=== PATIENT | female | born 1970 | race Caucasian/White ===

== ENCOUNTER 2016-09-16 12:44 | Inpatient (IN) | payer OTHER ==
[~2016-09-16] VITALS: Ht 154.9 cm; Wt 65.8 kg
[2016-09-16 13:14] VITALS: BP 146/95
[2016-09-16 14:04] LABS: BILIRUBIN,URINE NEGATIVE (NEGATIVE); BLOOD, URINE 2+ (NEGATIVE); COLOR,URINE YELLOW (YELLOW); LEUKOCYTE ESTERASE ,URINE NEGATIVE (NEGATIVE); NITRITE, URINE NEGATIVE (NEGATIVE); PROTEIN,URINE NEGATIVE (NEGATIVE); UGLUCOSE NEGATIVE (NEGATIVE); UROBILINOGEN,URINE 0.2 EU/dL (0.2 - 1)
[2016-09-16 14:08] LABS: HEMATOCRIT 38.3 % (36-48); HEMOGLOBIN 13.1 g/dL (12.0-16.0); MEAN CORPUSCULAR HEMOGLOBIN 30 pg (27-31); MEAN CORPUSCULAR HGB CONC 34 g/dL (33-37); MEAN CORPUSCULAR VOLUME 87 fL (80-94); PLATELET COUNT (AUTO) 367 K/uL (140-450); RED CELL DISTRIBUTION WIDTH 12.7 % (11.6-13.7); WHITE BLOOD COUNT (AUTO) 24.3 K/uL (4.8-10.8)
[2016-09-16 14:10] LABS: APPEARANCE,URINE CLOUDY (CLEAR); RBC,URINE 20-40 /HPF (0-5)
[2016-09-16 14:12] LABS: BACTERIA,URINE 1+ /HPF (None Seen); MUCUS,URINE 3+ /LPF (None Seen); SQUAMOUS EPITHELIAL CELL,UR 20-40 /LPF (0-3 (FEW)); WBC,URINE 0-3 /HPF (0-5)
[2016-09-16 14:14] LABS: ANION GAP 14.1 (8-16); CARBON DIOXIDE 24.8 mmol/L (21-32); CREATININE 0.7 mg/dL (0.6-1.3); POTASSIUM 3.9 mmol/L (3.5-5.1)
[2016-09-16 14:19] LABS: ALBUMIN 3.5 g/dL (3.4-5.0); TOTAL BILIRUBIN 0.5 mg/dL (0.0-1.0); TOTAL PROTEIN, SERUM 7.8 g/dL (6.4-8.2)
[2016-09-16 14:36] LABS: BAND % (MANUAL) 11 % (0-8); LYMPHOCYTES % (MANUAL) 5 % (20-46); MONOCYTES % (MANUAL) 3 % (5-12); NEUTROPHILS % (MANUAL) 81 (43-65); PLATELET ESTIMATE ADEQUATE
--- NOTE | 2016-09-16 18:39 | NUR ---
Pt taken to bed 8.
--- NOTE | 2016-09-16 18:48 | NUR ---
45/F presents to ED for evaluation of right sided abdominal pain radiating to right flank area for the past 2 weeks. Patient states she was sent home from work today. Pt states she has had a fever on and off. Afebrile at this time. Pt states the pain started suddenly and was intermittent and has been constant this last week. Patient describes pain as sharp, radiating to right flank, 9/10. Patient denies N/V/D at this time. Denies any painful urination or dysuria. Pt states she has hx of UTI's with no symptoms. Patient is AOX4, ambulatory with steady gait. Skin warm and dry. VSS.
--- NOTE | 2016-09-16 19:11 | NUR ---
Pt report given to Adolfo HERNANDEZ. Transfer of care at this time.
--- NOTE | 2016-09-16 19:18 | NUR ---
Dr. Ley evaluating patient at bedside.
[2016-09-16] MEDS ORDERED: KETOROLAC 30 MG/ML VIAL IVP ONE (19:25)
[2016-09-16] MEDS ORDERED: LEVOFLOXACIN 500 MG/D5W PREMIX 100 ML IV ONE (19:25)
[2016-09-16] MEDS ORDERED: NACL 0.9% 2,000 ML IV ONE (19:25)
[2016-09-16 19:59] LABS: LACTIC ACID 0.7 mmol/L (0.4-2.0)
[2016-09-16] MEDS ORDERED: HYDROmorphone 1 MG/ML AMP IVP ONE (20:55)
[2016-09-16] MEDS ORDERED: NACL 0.9% 1,000 ML IV ONE (20:55)
[2016-09-16] MEDS ORDERED: ONDANSETRON 4 MG/2 ML VIAL IVP ONE (21:40)
--- NOTE | 2016-09-16 22:28 | NUR ---
PT STATES SHE JUST HAD A VOMIT EPISODE IN THE BATHROOM, ER MD DR BRANDT AWARE
--- NOTE | 2016-09-17 00:01 | NUR ---
Pt report given to MARGARET HERNANDEZ. Transfer of care at this time. Patient will be admitted to care of DR LOOMIS. Admited to TELE 120A. Will go to room 120A. Belongings list completed. Report to MARGARET HERNANDEZ.
--- NOTE | 2016-09-17 00:01 | NUR ---
PT DENIES TAKING ANY MEDICATION AT HOME
--- NOTE | 2016-09-17 00:02 | NUR ---
RECEIVED PT REPORT FROM LINDA IN ER. INFORMED PT HAS NO MEDICATION RECONCILIATION AND NO CODE STATUS.
--- NOTE | 2016-09-17 00:15 | NUR ---
PT ARRIVED ON UNIT IN STABLE CONDITION. NO SOB, NO SIGNS OF DISTRESS. VS STABLE ON ROOM AIR. PT IS AOX4, AMBULATORY. SKIN IS INTACT. IV TO RT AC 20G PATENT ASYMPTOMATIC, INTACT, SALINE LOCKED. PT DENIES PAIN AT THIS TIME BUT C/O NAUSEA. PT STATED THAT HER LAST PAIN MEDICATION MADE HER NAUSEOUS AND THAT ZOFRAN DID NOT HELP. ORIENTED PT TO ROOM AND UNIT. PLAN OF CARE DISCUSSED WITH PT. SAFETY MEASURES IN PLACE. CALL LIGHT WITHIN REACH. WILL CONTINUE TO MONITOR.
[2016-09-17 00:30] VITALS: BP 154/86
[2016-09-17] MEDS ORDERED: NACL 0.9% 2,000 ML IV SCH (00:45)
[2016-09-17] MEDS ORDERED: ONDANSETRON 4 MG/2 ML VIAL IVP PRN (00:45)
[2016-09-17] MEDS ORDERED: cefTRIAXone 1,000 MG VIAL ONE (01:29)
--- NOTE | 2016-09-17 02:30 | NUR ---
2ND LITER OF BOLUS ALMOST FINISHED, PT TOLERATING WELL. NO SOB, NO SIGNS OF DISTRESS. IV SITE ASYMPTOMATIC, INTACT, PATENT, IVF RUNNING. PT DENIES PAIN AT THIS TIME. PLAN OF CARE DISCUSSED WITH PT. SAFETY MEASURES IN PLACE. CALL LIGHT WITHIN REACH. WILL CONTINUE TO MONITOR.
[2016-09-17] MEDS: NACL 0.9% 1,000 ML IV SCH ×3 (02:55→21:52)
--- NOTE | 2016-09-17 04:28 | NUR ---
PT ASLEEP IN BED. NO SOB, NO SIGNS OF DISTRESS. IV SITE ASYMPTOMATIC, INTACT, PATENT, IVF RUNNING. SAFETY MEASURES IN PLACE. CALL LIGHT WITHIN REACH. WILL CONTINUE TO MONITOR.
[2016-09-17] MEDS: ACETAMINOPHEN 325 MG TAB PO PRN (06:23)
--- NOTE | 2016-09-17 07:25 | NUR ---
ENDORSED PT IN STABLE CONDITION TO DAVID MAGANA. ALL NEEDS HAVE BEEN MET AT THIS TIME.
[2016-09-17 07:26] LABS: HEMATOCRIT 36.6 % (36-48); HEMOGLOBIN 12.3 g/dL (12.0-16.0); MEAN CORPUSCULAR HEMOGLOBIN 29 pg (27-31); MEAN CORPUSCULAR HGB CONC 34 g/dL (33-37); MEAN CORPUSCULAR VOLUME 87 fL (80-94); PLATELET COUNT (AUTO) 353 K/uL (140-450); RED BLOOD CELL COUNT(AUTO) 4.18 MIL/uL (4.20-5.40); RED CELL DISTRIBUTION WIDTH 12.4 % (11.6-13.7)
--- NOTE | 2016-09-17 07:26 | NUR ---
RECEIVED SBAR REPORT FROM DAVID NUNEZ AT PT BEDSIDE. PT RESTING IN BED. DENIES DISCOMFORT AT THIS TIME. NO S/S OF RESPIRATORY DISTRESS. IV SITE PATENT AND INTACT. CALL LIGHT WITHIN REACH.
[2016-09-17 08:00] VITALS: BP 140/75
[2016-09-17 08:00] LABS: BAND % (MANUAL) 6 % (0-8); LYMPHOCYTES % (MANUAL) 11 % (20-46); MONOCYTES % (MANUAL) 4 % (5-12); NEUTROPHILS % (MANUAL) 79 (43-65)
--- NOTE | 2016-09-17 08:13 | NUR ---
PATIENT HAS BEEN SCREENED AND CATEGORIZED MODERATE NUTRITION RISK. PATIENT WILL BE SEEN WITHIN 3-5 DAYS OF ADMISSION. 09/19/16-09/21/[address]
[2016-09-17 08:14] LABS: ANION GAP 11.5 (8-16); CALCIUM 6.9 mg/dL (8.5-10.1); CARBON DIOXIDE 26.1 mmol/L (21-32); CREATININE 0.6 mg/dL (0.6-1.3); POTASSIUM 3.6 mmol/L (3.5-5.1)
[2016-09-17 08:21] LABS: MAGNESIUM 1.6 mg/dL (1.8-2.4); PHOSPHORUS 3.1 mg/dL (2.5-4.9)
[2016-09-17] MEDS ORDERED: DOCUSATE SODIUM 100 MG GELCAP PO SCH (09:00)
--- NOTE | 2016-09-17 09:34 | NUR ---
CM NOTE INITIAL REVIEW SENT TO [facility] FAX# [phone] PH# [phone] ATTN: URI CASTANEDA EXT [phone]
[2016-09-17 10:57] LABS: INR 1.1 (0.8-1.2); PROTHROMBIN TIME 10.5 secs (10.8-13.4)
[2016-09-17 10:58] LABS: LACTIC ACID 0.6 mmol/L (0.4-2.0)
[2016-09-17 10:59] LABS: CHOL/HDL RATIO 3.2 (1-4.5); CHOLESTEROL 146 mg/dL (<200); HDL CHOLESTEROL 46 mg/dL (40-60); LDL (CALC) 91 mg/dL (60-100); TRIGLYCERIDES 48 mg/dL (30-150)
[2016-09-17 11:00] LABS: AMYLASE 97 U/L (25-115)
[2016-09-17 11:04] LABS: FREE T4 (FREE THYROXINE) 1.18 ng/dL (0.76-1.46); LIPASE 377 U/L (73-393); THYROID STIMULATING HORMONE 0.55 uIU/mL (0.34-3.76)
[2016-09-17 11:07] LABS: MAGNESIUM 1.7 mg/dL (1.8-2.4)
[2016-09-17 11:18] LABS: AMPHETAMINE, URINE NEGATIVE ng/ml (NEG <=1000); BARBITURATE, URINE NEGATIVE ng/ml (NEG <=200); BENZODIAZEPINE, URINE NEGATIVE ng/mL (NEG <=200); CANNABINOID, URINE NEGATIVE ng/mL (NEG <=50); COCAINE, URINE NEGATIVE ng/mL (NEG <=300); OPIATE, URINE NEGATIVE ng/mL (NEG <=2000); PHENCYCLIDINE SCREEN,URINE NEGATIVE ng/mL (NEG <=25)
[2016-09-17 11:27] LABS: ALCOHOL, BLOOD < 3 mg/dL (<3)
--- NOTE | 2016-09-17 11:47 | NUR ---
PATIENT AMBULATING AROUND NURSING UNIT. NO S/S OF ACUTE DISTRESS.
[2016-09-17] MEDS ORDERED: MAG SULF 2000 MG/WATER PREMIX 50 ML IV SCH (13:00)
[2016-09-17 16:00] VITALS: BP 126/65
--- NOTE | 2016-09-17 16:11 | NUR ---
PT RESTING IN BED. DENIES DISCOMFORT. NO S/S OF ACUTE DISTRESS.
--- NOTE | 2016-09-17 17:12 | NUR ---
PATIENT REFUSED FLU VACCINE. EDUCATION GIVEN AND VERBALIZED UNDERSTANDING.
--- NOTE | 2016-09-17 19:25 | NUR ---
REPORT GIVEN TO GÓMEZ AT PT BEDSIDE. NO S/S OF ACUTE DISTRESS.
--- NOTE | 2016-09-17 19:26 | NUR ---
RECD. RESTING IN BED, AWAKE, A/OX4. RESPIRATION EVEN AND UNLABORED. IV OF NS AT 80ML/HR INFUSING, RIGHT AC G20. AMBULATORY TO BR. PLAN OF CARE FOR THE SHIFT DISCUSSED, VERBALIZED UNDERSTANDING. ENCOURAGED TO INCREASED WATER INTAKE. CRANBERRY JUICES GIVEN. DENIES PAIN 0/10.
--- NOTE | 2016-09-17 20:00 | NUR ---
Patient's Plan of Care was discussed and reviewed with KYRA: GÓMEZ.
[2016-09-17] MEDS: CALCIUM CARB/VIT-D 500 MG/200 IU 1 TAB PO SCH (21:07)
[2016-09-17] MEDS: HYDROcodone/APAP 5/325 MG 1 TAB TAB PO PRN (21:08)
[2016-09-17] MEDS: DOCUSATE SODIUM 100 MG GELCAP PO SCH (21:08)
[2016-09-17] MEDS ORDERED: ZOLPIDEM 5 MG TAB PO PRN (21:50)
--- NOTE | 2016-09-17 22:00 | NUR ---
AMBULATED TO TO VOID, BACK TO BED AFTER VOIDING. GAIT STEADY.
[2016-09-18] VITALS: BP 108/58
--- NOTE | 2016-09-18 | NUR ---
SLEEPING COMFORTABLY IN BED.
[2016-09-18] MEDS: NACL 0.9% 1,000 ML IV SCH ×3 (01:44→23:48)
--- NOTE | 2016-09-18 04:00 | NUR ---
AWAKE IN BED, STATED HER SLEEP IS ON AND OFF. ENCOURAGED TO GO BACK TO SLEEP.
[2016-09-18 06:41] LABS: BASOPHILS # (AUTO) 0.1 K/uL (0.00-0.22); BASOPHILS % (AUTO) 1.3 % (0.0-2.0); EOSINOPHILS # (AUTO) 0.2 K/uL (0-0.4); EOSINOPHILS % (AUTO) 1.6 % (0.0-4.0); HEMATOCRIT 35.6 % (36-48); HEMOGLOBIN 11.9 g/dL (12.0-16.0); LYMPHOCYTES # (AUTO) 3.6 K/uL (2.5-16.5); LYMPHOCYTES % (AUTO) 35.6 % (20.5-51.1); MEAN CORPUSCULAR HEMOGLOBIN 29 pg (27-31); MEAN CORPUSCULAR HGB CONC 33 g/dL (33-37); MEAN CORPUSCULAR VOLUME 88 fL (80-94); MONOCYTES # (AUTO) 0.7 K/uL (0.8-1.0); MONOCYTES % (AUTO) 6.6 % (1.7-9.3); NEUTROPHILS # (AUTO) 5.6 K/uL (1.8-7.7); NEUTROPHILS % (AUTO) 54.9 % (42.2-75.2); PLATELET COUNT (AUTO) 349 K/uL (140-450); RED BLOOD CELL COUNT(AUTO) 4.05 MIL/uL (4.20-5.40); RED CELL DISTRIBUTION WIDTH 12.4 % (11.6-13.7); WHITE BLOOD COUNT (AUTO) 10.2 K/uL (4.8-10.8)
[2016-09-18 06:45] LABS: ANION GAP 10.6 (8-16); CALCIUM 7.7 mg/dL (8.5-10.1); CARBON DIOXIDE 26.3 mmol/L (21-32); CREATININE 0.6 mg/dL (0.6-1.3); POTASSIUM 3.9 mmol/L (3.5-5.1)
[2016-09-18 06:53] LABS: MAGNESIUM 1.9 mg/dL (1.8-2.4); PHOSPHORUS 3.4 mg/dL (2.5-4.9)
--- NOTE | 2016-09-18 07:15 | NUR ---
CONDITION REMAIN STABLE. ENDORSED TO DAVID HERNANDEZ FOR CONTINUITY OF CARE.
--- NOTE | 2016-09-18 07:16 | NUR ---
RECEIVED PT ASLEEP BUT EASILY AROUSABLE. AAOX4, WITH IV ACCESS AT RIGHT AC 20G INFUSING FLUIDS WELL. NO S/S OF RESPIRATORY DISTRESS OR DISCOMFORT. DISCUSSED PLAN OF CARE, PT VERBALIZED UNDERSTANDING. CALL LIGHT WITHIN REACH, WILL CONTINUE TO MONITOR.
[2016-09-18 08:00] VITALS: BP 129/87
[2016-09-18 08:22] LABS: T3 UPTAKE 28 % (24-39)
--- NOTE | 2016-09-18 08:25 | NUR ---
CM NOTE CONCURRENT REVIEW SENT TO [facility] FAX# [phone] PH# [phone] URI CASTAN[facility] EXT [phone]
[2016-09-18] MEDS: CALCIUM CARB/VIT-D 500 MG/200 IU 1 TAB PO SCH ×2 (09:15→21:21)
[2016-09-18] MEDS: MULTIVITAMIN/MINERALS 1 TAB PO SCH (09:15)
[2016-09-18] MEDS: DOCUSATE SODIUM 100 MG GELCAP PO SCH ×2 (09:15→21:21)
--- NOTE | 2016-09-18 09:15 | NUR ---
DUE MEDS GIVEN, PT TOLERATED WELL. CALL LIGHT WITHIN REACH, WILL CONTINUE TO MONITOR.
--- NOTE | 2016-09-18 09:30 | NUR ---
PT TRANSFERRED TO BED 111B
--- NOTE | 2016-09-18 11:06 | NUR ---
PT AWAKE WATCHING TV. CALL LIGHT WITHIN REACH, WILL CONTINUE TO MONITOR.
--- NOTE | 2016-09-18 13:19 | NUR ---
PT AWAKE TALKING TO RELATIVE AT BEDSIDE. ALL NEEDS MET AT THIS TIME. CALL LIGHT WITHIN REACH, WILL CONTINUE TO MONITOR.
--- NOTE | 2016-09-18 15:13 | NUR ---
FREQUENT VISUAL CHECKS, PT HAS NO COMPLAINTS AT THIS TIME. ALL NEEDS MET. CALL LIGHT WITHIN REACH, WILL CONTINUE TO MONITOR.
[2016-09-18 16:00] VITALS: BP 127/80
--- NOTE | 2016-09-18 17:45 | NUR ---
PT AWAKE SITTING ON BED WATCHING TV. DINNER SERVED, PT HAS GOOD APPETITE. ALL NEEDS MET, WILL CONTINUE TO MONITOR.
[2016-09-18] MEDS: ACETAMINOPHEN 325 MG TAB PO PRN (19:24)
--- NOTE | 2016-09-18 19:37 | NUR ---
ENDORSED PT TO KYRA MAGAÑA IN STABLE CONDITION FOR CONTINUITY OF CARE
--- NOTE | 2016-09-18 19:38 | NUR ---
RECD. RESTING IN BED, AWAKE, A/OX4. RESPIRATION EVEN AND UNLABORED. IV OF NS AT 90 ML/HR INFUSING, RIGHT AC G20. STATED STILL WITH ON AND OFF LOW BACK PAIN. ENCOURAGED TO CONTINUE DRINKING MORE WATER AND CRANBERRY JUICES. PLAN OF CARE FOR THE SHIFT DISCUSSED. VERBALIZED UNDERSTANDING. DENIES PAIN AT THIS TIME . FAMILY AT THE BEDSIDE. Addendum: 09/18/16 at 2207 by Toyin Cavazos LVN CORRECTION : IV OF NS AT 80 ML/HR INFUSING.
--- NOTE | 2016-09-18 21:00 | NUR ---
Patient's Plan of Care was discussed and reviewed with DOWEL MACHINE OPERATOR: GÓMEZ TOLEDO
--- NOTE | 2016-09-18 21:21 | NUR ---
UNABLE TO SLEEP, MEDICATED WITH AMBIEN 5 MG. PO.
--- NOTE | 2016-09-18 22:20 | NUR ---
STILL AWAKE, WATCHING TV.
[2016-09-18] MEDS: HYDROcodone/APAP 5/325 MG 1 TAB TAB PO PRN (23:44)
[2016-09-19] VITALS: BP 146/71
--- NOTE | 2016-09-19 01:30 | NUR ---
SLEEPING COMFORTABLY IN BED.
[2016-09-19] MEDS: NACL 0.9% 1,000 ML IV SCH (02:44)
[2016-09-19 06:39] LABS: BASOPHILS # (AUTO) 0.2 K/uL (0.00-0.22); BASOPHILS % (AUTO) 2.2 % (0.0-2.0); EOSINOPHILS # (AUTO) 0.2 K/uL (0-0.4); HEMATOCRIT 37.9 % (36-48); HEMOGLOBIN 12.8 g/dL (12.0-16.0); LYMPHOCYTES # (AUTO) 3.8 K/uL (2.5-16.5); LYMPHOCYTES % (AUTO) 38.3 % (20.5-51.1); MEAN CORPUSCULAR HEMOGLOBIN 30 pg (27-31); MEAN CORPUSCULAR HGB CONC 34 g/dL (33-37); MEAN CORPUSCULAR VOLUME 88 fL (80-94); MONOCYTES # (AUTO) 0.7 K/uL (0.8-1.0); MONOCYTES % (AUTO) 7.2 % (1.7-9.3); NEUTROPHILS # (AUTO) 4.9 K/uL (1.8-7.7); NEUTROPHILS % (AUTO) 50.3 % (42.2-75.2); PLATELET COUNT (AUTO) 398 K/uL (140-450); RED BLOOD CELL COUNT(AUTO) 4.29 MIL/uL (4.20-5.40); RED CELL DISTRIBUTION WIDTH 12.2 % (11.6-13.7); WHITE BLOOD COUNT (AUTO) 9.8 K/uL (4.8-10.8)
[2016-09-19 06:57] LABS: CALCIUM 8.3 mg/dL (8.5-10.1); CARBON DIOXIDE 29.8 mmol/L (21-32); CREATININE 0.7 mg/dL (0.6-1.3); POTASSIUM 3.8 mmol/L (3.5-5.1)
[2016-09-19 07:03] LABS: MAGNESIUM 1.7 mg/dL (1.8-2.4)
--- NOTE | 2016-09-19 07:25 | NUR ---
CONDITION REMAIN STABLE. ENDORSED TO DAVID ARANA FOR CONTINUITY OF CARE.
--- NOTE | 2016-09-19 07:27 | NUR ---
RECEIVED REPORT FROM NIGHT PER DIEM PHYSICAL THERAPIST ASSISTANT. PT SLEEPING IN BED. AAOX4. NO S/S OF ACUTE DISTRESS. PT DENIES PAIN. IV SITE PATENT AND INTACT. CALL LIGHT WITHIN REACH. SAFETY MEASURES ENSURED. WILL CONTINUE TO MONITOR.
[2016-09-19 08:00] VITALS: BP 140/90
[2016-09-19] MEDS ORDERED: LEVO750T2 PO (08:22)
[2016-09-19] MEDS ORDERED: ACET-2863 PO (08:24)
[2016-09-19] MEDS ORDERED: DOCU-67 PO (08:24)
[2016-09-19] MEDS ORDERED: MAGNESIUM OXIDE 400 MG TAB PO SCH (09:00)
[2016-09-19] MEDS: MULTIVITAMIN/MINERALS 1 TAB PO SCH (09:17)
[2016-09-19] MEDS: CALCIUM CARB/VIT-D 500 MG/200 IU 1 TAB PO SCH (09:17)
[2016-09-19] MEDS: DOCUSATE SODIUM 100 MG GELCAP PO SCH (09:17)
--- NOTE | 2016-09-19 09:36 | NUR ---
CM NOTE CONCURRENT REVIEW SENT TO [facility] FAX# [phone] PH# [phone] URI CASTANEDA EXT [phone]
--- NOTE | 2016-09-19 09:45 | NUR ---
PT TOLERATED AM MEDS WELL. NO S/S OF ACUTE DISTRESS. PT DENIES PAIN. CALL LIGHT WITHIN REACH. SAFETY MEASURES ENSURED. WILL CONTINUE TO MONITOR.
[2016-09-19 09:58] VITALS: BP 140/90
--- NOTE | 2016-09-19 11:16 | NUR ---
PT CLEARED FOR DISCHARGE. DISCHARGE INSTRUCTIONS PROVIDED. PT VERBALIZED UNDERSTANDING. IV TAKEN OUT TIP INTACT. NO S/S OF ACUTE DISTRESS. PT DENIES PAIN. AWAITING RIDE FROM FAMILY MEMBER.
--- NOTE | 2016-09-19 11:30 | NUR ---
PT TAKEN OFF UNIT. PT REMAINS IN STABLE CONDITION.
== END 2016-09-19 11:30 | disposition home or self-care (01) | DRG 463 ==
LOC: MED 12:44 → MTU 09-17 00:11
PROVIDERS: ADMIT Family Medicine; ATTEND Family Medicine
DX: N12 Tubulo-interstitial nephritis, not specified as acute or chronic (principal); I42.9 Cardiomyopathy, unspecified; E83.42 Hypomagnesemia; E83.51 Hypocalcemia; N39.0 Urinary tract infection, site not specified; J45.909 Unspecified asthma, uncomplicated; I10 Essential (primary) hypertension; N23 Unspecified renal colic; Z90.49 Acquired absence of other specified parts of digestive tract; Z72.89 Other problems related to lifestyle; Z88.1 Allergy status to other antibiotic agents
CPT/HCPCS: 36415; 71010; 80048; 80053; 80305; 81001; 82150; 83036; 83605; 83690; 83735; 83880; 84100; 84439; 84443; 84479; 85025; 85610; 85730; 87040; 87081; 87086; 93005; 96365; 96375; 99285; G0482; J0696; J1170; J1885; J1956; J2405; J3475; J7030; J7060; Q0092